=== PATIENT | male | born 1960 | race African-American/Black ===

== ENCOUNTER 2018-10-02 13:19 | Emergency (ER) | payer BC ==
[~2018-10-02] VITALS: Ht 190.5 cm; Wt 86.2 kg
[2018-10-02] MEDS ORDERED: LOPRESSOR50 PO (14:00)
[2018-10-02] MEDS ORDERED: COZAAR 25 MG TA25 M2 PO (14:00)
[2018-10-02] MEDS ORDERED: UNICOMPLEX M TA1 TA1 PO (14:01)
[2018-10-02 14:21] LABS: ABSOLUTE NEUTROPHILS 3.1 thou/uL (1.4-8.2); BASOPHILS 1.1 % (0.0-2.0); EOSINOPHILS 0.9 % (0.0-3.0); HEMOGLOBIN 14.3 gm/dL (14.0-18.0); MCH 30.1 pg (26.0-34.0); MCHC 34.7 g/dL (28.0-37.0); MCV 86.5 fL (80.0-100.0); MONOCYTES 7.7 % (1.0-8.0); PLATELET COUNT 170 thou/uL (150-400); POLYS 67.3 % (36.0-66.0); RBC 4.74 mil/uL (4.50-6.00); RDW 14.2 % (10.5-14.5); WBC 4.6 thou/uL (4.0-11.0)
[2018-10-02 14:29] LABS: CALCIUM 8.8 mg/dL (8.5-10.1); CREATININE 1.2 mg/dL (0.7-1.3); POTASSIUM 3.4 mmol/L (3.5-5.1)
[2018-10-02 14:34] LABS: ALBUMIN 3.7 g/dL (3.4-5.0); INR 1.1; PROTIME 11.4 Seconds (9.3-11.4); TOTAL BILIRUBIN 1.7 mg/dL (<0.1-1.0); TOTAL PROTEIN 6.9 g/dL (6.4-8.2)
== END 2018-10-02 15:50 | disposition home or self-care (01) ==
LOC: ER 13:19
PROVIDERS: Physician Assistant
DX: K64.4 Residual hemorrhoidal skin tags (principal); K92.1 Melena; I10 Essential (primary) hypertension; Z87.891 Personal history of nicotine dependence; Z88.2 Allergy status to sulfonamides; Z88.6 Allergy status to analgesic agent

== ENCOUNTER 2021-06-06 00:23 | Emergency (ER) | payer BC ==
[~2021-06-06] VITALS: Ht 188 cm; Wt 86.6 kg
[~2021-06-06 00:23] MED LIST: COZAAR 25 MG TA25 M2 PO; LOPRESSOR50 PO; UNICOMPLEX M TA1 TA1 PO
[2021-06-06] MEDS ORDERED: MICARDIS 80 MG80 MG PO ×2 (00:33→00:34)
[2021-06-06 03:18] VITALS: BP 157/97
== END 2021-06-06 03:20 | disposition home or self-care (01) ==
LOC: ER 00:23
DX: S20.212A Contusion of left front wall of thorax, initial encounter (principal); S00.83XA Contusion of other part of head, initial encounter; S00.81XA Abrasion of other part of head, initial encounter; F17.210 Nicotine dependence, cigarettes, uncomplicated; I10 Essential (primary) hypertension; Z88.1 Allergy status to other antibiotic agents; Z88.2 Allergy status to sulfonamides; Z98.890 Other specified postprocedural states; W22.8XXA Striking against or struck by other objects, initial encounter; Y93.89 Activity, other specified; Y92.89 Other specified places as the place of occurrence of the external cause; Y99.8 Other external cause status